=== PATIENT | female | born 1965 | race Caucasian/White ===

== ENCOUNTER 2021-07-14 14:50 | Emergency (ER) | payer OTHER ==
[~2021-07-14 14:50] MED LIST: ACETAMINOPHEN500 M1 PO; ALLEGRA ALLERG180 MG PO; BACTROBAN NASAL1 GM; PRILOSEC20 MG PO; SYNTHROID88 MCG PO; TOPAMAX50 MG PO
[2021-07-14 17:08] LABS: HCT 41.5 % (37.0-47.0); HGB 14.2 g/dl (12.5-16.0); MCH 31.1 pg (25.0-31.0); MCHC 34.2 g/dL (32.0-36.0); MCV 90.8 fL (78.0-100.0); MPV 9.9 fL (6.0-9.5); RBC 4.57 M/uL (4.20-5.40); RDW 12.4 % (11.5-14.0); WBC 6.2 K/uL (4.0-10.5)
[2021-07-14 17:10] LABS: BILIRUBIN NEGATIVE (NEGATIVE); BLOOD TRACE-INTACT Ery/uL (NEGATIVE); CLARITY CLEAR (CLEAR); COLOR YELLOW (YELLOW); GLUCOSE (U) NORMAL (NORMAL); LEUKOCYTES NEGATIVE Leu/uL (NEGATIVE); NITRITE NEGATIVE (NEGATIVE); PROTEIN NEGATIVE (NEGATIVE); SPECIFIC GRAVITY 1.015 (1.001-1.030); UROBILINOGEN 0.2 mg/dL (0.2-1.0); pH 6.5 (5.0-9.0)
[2021-07-14 17:19] LABS: ALBUMIN 4.3 g/dL (3.4-5.0); ALKALINE PHOSHATASE 101 U/L (46-116); ALT 30 U/L (14-59); AST 21 U/L (15-37); BILIRUBIN - TOTAL 0.4 mg/dL (0.2-1.0); BUN 9 mg/dL (7-18); CHLORIDE 106 mmol/L (98-107); CO2 (BICARBONATE) 25 mmol/L (21-32); GLOBULIN (CALCULATION) 2.9 g/dL; GLUCOSE 94 mg/dL (74-106); LIPASE 100 U/L (73-393); POTASSIUM 4.1 mmol/L (3.5-5.1); TOTAL PROTEIN 7.2 g/dL (6.4-8.2)
[2021-07-14 17:27] LABS: BACTERIA TRACE
[2021-07-14 17:28] LABS: URINARY WBC RARE
== END 2021-07-14 19:24 | disposition home or self-care (01) ==
LOC: FER 14:50
PROVIDERS: Emergency Medicine
DX: R07.89 Other chest pain (principal); R10.9 Unspecified abdominal pain; Z88.0 Allergy status to penicillin
CPT/HCPCS: 36415; 71275; 80053; 81001; 83690; 84484; 93005; J1885; J7030; Q9967